=== PATIENT | female | born 1945 | race Caucasian/White ===

== ENCOUNTER 2017-09-26 10:06 | Observation (INO) | payer MEDICARE, BC ==
[~2017-09-26] VITALS: Ht 160 cm; Wt 82.7 kg
[2017-09-26] MEDS ORDERED: morphine 4 MG/ML inj SYRINge IV ONE ×2 (10:40→12:15)
[2017-09-26 11:13] LABS: BASOPHILS % (AUTO) 0.1 % (0-1); EOSINOPHILS # (AUTO) 0.2 X10'3 (0-0.9); EOSINOPHILS % (AUTO) 2.2 % (0-6); HEMATOCRIT 40.5 % (35.0-45.0); HEMOGLOBIN 13.4 g/dl (12.0-16.0); LYMPHOCYTES # (AUTO) 1.3 X10'3 (1.1-4.8); LYMPHOCYTES % (AUTO) 13.9 % (21-51); MEAN CORPUSCULAR HEMOGLOBIN 25.1 PG (27.0-31.0); MEAN CORPUSCULAR VOLUME 75.9 FL (78-98); MEAN PLATELET VOLUME 7.6 FL (7.4-10.4); MONOCYTES # (AUTO) 0.6 X10'3 (0-0.9); MONOCYTES % (AUTO) 6.5 % (2-12); NEUTROPHILS # (AUTO) 7.3 X10'3 (1.8-7.7); NEUTROPHILS % (AUTO) 77.3 % (42-75); PLATELET COUNT 274 X10'3 (140-440); RED BLOOD COUNT 5.33 X10'6 (4.20-5.60); RED CELL DISTRIBUTION WIDTH 15.8 % (11.5-14.5); WHITE BLOOD COUNT 9.4 X10'3 (4.5-11.0)
[2017-09-26] MEDS ORDERED: LORazepam 2 mg/ml vial IV ONE (11:15)
[2017-09-26 11:36] LABS: ALANINE AMINOTRANSFERASE 21 U/L (12-78); ALBUMIN 2.8 G/DL (3.4-5.0); ALBUMIN/GLOBULIN RATIO 0.9 (1.1-1.5); ALKALINE PHOSPHATASE 125 IU/L (46-116); ANION GAP 7 (8-16); ASPARTATE AMINO TRANSFERASE 17 U/L (10-37); BILIRUBIN,TOTAL 0.3 MG/DL (0.1-1.0); BLOOD UREA NITROGEN 14 MG/DL (7-18); CHLORIDE 104 MMOL/L (99-107); GLUCOSE 141 MG/DL (70-104); POTASSIUM 4.2 MMOL/L (3.5-5.1); SODIUM 141 MMOL/L (135-145); TOTAL CARBON DIOXIDE 29.8 MMOL/L (24-32); eGFR 82 ML/MIN
[2017-09-26] MEDS ORDERED: iohexol 300mg/ml 100ml inj. ONE (11:38)
[2017-09-26] MEDS ORDERED: baclofen 10mg tablet PO STA (12:44)
[2017-09-26] MEDS ORDERED: tranexamic acid 100mg/ml inj. IV ONE (13:05)
[2017-09-26] MEDS ORDERED: tranexamic acid inj. 830 MG in normal saline 100ml IV soln 91.7 ML IV ONE (13:20)
[2017-09-26] MEDS ORDERED: mag hydrox/Alum hydrox/simeth 30ml oral suspension PO PRN (13:45)
[2017-09-26] MEDS ORDERED: HYDROcodone/acetaminophen 5mg/325mg tablet PO PRN (13:45)
[2017-09-26] MEDS ORDERED: magnesium hydroxide 30ml (MOM) UD suspension PO PRN (13:45)
[2017-09-26] MEDS ORDERED: acetaminophen 325mg tablet PO PRN (13:45)
[2017-09-26] MEDS ORDERED: ondansetron/PF 4mg/2ml inj IV PRN (13:45)
[2017-09-26] MEDS ORDERED: SIMV20TA5 PO (15:18)
[2017-09-26] MEDS ORDERED: LEVO175T2 PO (15:18)
[2017-09-26] MEDS ORDERED: OXYB5TAB29 PO (15:18)
[2017-09-26 16:40] VITALS: BP 151/69
[2017-09-26] MEDS: morphine 4 MG/ML inj SYRINge IV PRN ×2 (16:44→20:52)
[2017-09-26 18:00] VITALS: BP 138/61
[2017-09-26] MEDS: baclofen 10mg tablet PO SCH (19:42)
[2017-09-27] VITALS: BP 139/60
[2017-09-27] MEDS: baclofen 10mg tablet PO SCH ×3 (02:55→13:36)
[2017-09-27 05:20] LABS: BASOPHILS % (AUTO) 0.3 % (0-1); EOSINOPHILS # (AUTO) 0.1 X10'3 (0-0.9); EOSINOPHILS % (AUTO) 1.5 % (0-6); HEMOGLOBIN 10.6 g/dl (12.0-16.0); LYMPHOCYTES # (AUTO) 1.4 X10'3 (1.1-4.8); LYMPHOCYTES % (AUTO) 15.3 % (21-51); MEAN CORPUSCULAR HEMOGLOBIN 25.2 PG (27.0-31.0); MEAN CORPUSCULAR HGB CONC 33.2 % (33.0-36.5); MEAN PLATELET VOLUME 7.9 FL (7.4-10.4); MONOCYTES # (AUTO) 0.8 X10'3 (0-0.9); MONOCYTES % (AUTO) 8.5 % (2-12); NEUTROPHILS # (AUTO) 6.6 X10'3 (1.8-7.7); NEUTROPHILS % (AUTO) 74.4 % (42-75); PLATELET COUNT 244 X10'3 (140-440); RED BLOOD COUNT 4.21 X10'6 (4.20-5.60); RED CELL DISTRIBUTION WIDTH 15.8 % (11.5-14.5); WHITE BLOOD COUNT 8.9 X10'3 (4.5-11.0)
[2017-09-27 07:25] VITALS: BP 160/48
[2017-09-27 07:40] LABS: CREATINE KINASE 73 U/L (26-192)
[2017-09-27 08:00] VITALS: BP 160/48
[2017-09-27 11:00] VITALS: BP 186/75
== END 2017-09-27 15:38 | disposition home health service (06) ==
LOC: ER 10:07 → ED HOLD 13:44 → SUR 3N 15:14
PROVIDERS: ADMIT Internal Medicine; ATTEND Internal Medicine
DX: S80.12XA Contusion of left lower leg, initial encounter (principal); D62 Acute posthemorrhagic anemia; E11.9 Type 2 diabetes mellitus without complications; E78.5 Hyperlipidemia, unspecified; E03.9 Hypothyroidism, unspecified; I69.354 Hemiplegia and hemiparesis following cerebral infarction affecting left non-dominant side; W23.1XXA Caught, crushed, jammed, or pinched between stationary objects, initial encounter; Y93.89 Activity, other specified; Y92.098 Other place in other non-institutional residence as the place of occurrence of the external cause
CPT/HCPCS: 36415; 73701; 80053; 82550; 82948; 85025; 85610; 87070; 96365; 96375; 96376; 97116; 97161; 97530; 99285; A4315; G0378; J2060; J2270; J7030; Q9967

== ENCOUNTER 2017-09-30 14:43 | Outpatient (CLI) | payer MEDICARE, BC ==
[~2017-09-30 14:43] MED LIST: LEVO175T2 PO; OXYB5TAB29 PO; SIMV20TA5 PO
== END 2017-09-30 23:59 | disposition home or self-care (01) ==
LOC: VAS 14:43
PROVIDERS: ATTEND Nurse Practitioner Family
DX: M79.605 Pain in left leg (principal); I10 Essential (primary) hypertension; E10.9 Type 1 diabetes mellitus without complications; J45.909 Unspecified asthma, uncomplicated
CPT/HCPCS: 93971

== ENCOUNTER 2018-03-29 10:54 | Emergency (ER) | payer MEDICARE, BC ==
[~2018-03-29] VITALS: Ht 162.6 cm; Wt 81.8 kg
[2018-03-29] MEDS ORDERED: DOXYCYCLINE 100MG CAPSULE PO STA (12:18)
[2018-03-29] MEDS ORDERED: DOXY100C43 PO (12:21)
[2018-03-29 12:47] VITALS: BP 123/74
[2018-03-30] MEDS ORDERED: CEPH500C5 PO (19:48)
== END 2018-03-29 12:49 | disposition home or self-care (01) ==
LOC: ER 10:54
DX: S00.83XA Contusion of other part of head, initial encounter (principal); S60.222A Contusion of left hand, initial encounter; L03.114 Cellulitis of left upper limb; E11.9 Type 2 diabetes mellitus without complications; Z86.73 Personal history of transient ischemic attack (TIA), and cerebral infarction without residual deficits; Z98.890 Other specified postprocedural states; Z88.5 Allergy status to narcotic agent; Z79.899 Other long term (current) drug therapy; Z79.01 Long term (current) use of anticoagulants; W05.0XXA Fall from non-moving wheelchair, initial encounter; Y93.89 Activity, other specified; Y92.098 Other place in other non-institutional residence as the place of occurrence of the external cause; Y99.9 Unspecified external cause status
CPT/HCPCS: 70450; 70486; 73130; 93005; 99284

== ENCOUNTER 2018-03-30 17:53 | Emergency (ER) | payer MEDICARE, BC ==
[~2018-03-30] VITALS: Ht 162.6 cm; Wt 81.9 kg
[~2018-03-30 17:53] MED LIST changes: +DOXY100C43 PO
[2018-03-30] MEDS ORDERED: cephalexin 500mg capsule PO ONE (19:45)
[2018-03-30] MEDS ORDERED: CEPH500C5 PO (19:48)
[2018-03-30 20:07] VITALS: BP 112/57
== END 2018-03-30 20:09 | disposition home or self-care (01) ==
LOC: ER 17:53
DX: L03.114 Cellulitis of left upper limb (principal); E11.9 Type 2 diabetes mellitus without complications; Z86.73 Personal history of transient ischemic attack (TIA), and cerebral infarction without residual deficits; Z98.890 Other specified postprocedural states; Z88.5 Allergy status to narcotic agent; Z79.899 Other long term (current) drug therapy
CPT/HCPCS: 99284

== ENCOUNTER 2019-01-16 11:51 | Outpatient (CLI) | payer MEDICARE, BC ==
[~2019-01-16 11:51] MED LIST changes: +CEPH500C5 PO; -DOXY100C43 PO
[2019-01-16 12:43] LABS: ALANINE AMINOTRANSFERASE 22 U/L (12-78); ALBUMIN 2.8 G/DL (3.4-5.0); ALBUMIN/GLOBULIN RATIO 0.9 (1.1-1.5); ALKALINE PHOSPHATASE 114 IU/L (46-116); ANION GAP 5 (8-16); ASPARTATE AMINO TRANSFERASE 16 U/L (10-37); BILIRUBIN,TOTAL 0.3 MG/DL (0.1-1.0); BLOOD UREA NITROGEN 13 MG/DL (7-18); BUN/CREATININE RATIO 17.6 (6.6-38.0); CALCIUM 8.8 MG/DL (8.5-10.1); CHLORIDE 107 MMOL/L (99-107); CREATININE 0.74 MG/DL (0.40-0.90); GLUCOSE 121 MG/DL (70-104); POTASSIUM 4.2 MMOL/L (3.5-5.1); SODIUM 145 MMOL/L (135-145); TOTAL PROTEIN 5.9 G/DL (6.4-8.2); eGFR 77 ML/MIN
== END 2019-01-16 23:59 | disposition home or self-care (01) ==
LOC: LAB 11:51
PROVIDERS: ATTEND Family Medicine
DX: I10 Essential (primary) hypertension (principal); E11.8 Type 2 diabetes mellitus with unspecified complications
CPT/HCPCS: 36415; 80053

== ENCOUNTER 2019-01-21 10:51 | Outpatient (CLI) | payer MEDICARE, BC ==
[2019-01-21] MEDS ORDERED: iohexol 300mg/ml 100ml inj. ONE (11:05)
== END 2019-01-21 23:59 | disposition home or self-care (01) ==
LOC: 64 CT 10:51
PROVIDERS: ATTEND Family Medicine
DX: K44.9 Diaphragmatic hernia without obstruction or gangrene (principal); K42.9 Umbilical hernia without obstruction or gangrene; M41.86 Other forms of scoliosis, lumbar region
CPT/HCPCS: 74177; Q9967

== ENCOUNTER 2019-02-24 09:34 | Outpatient (CLI) | payer MEDICARE, BC ==
[~2019-02-24 09:34] MED LIST changes: +SIMV-42 PO; -SIMV20TA5 PO
== END 2019-02-24 23:59 | disposition home or self-care (01) ==
LOC: RAD 09:34
PROVIDERS: ATTEND Family Medicine
DX: I69.991 Dysphagia following unspecified cerebrovascular disease (principal); K44.9 Diaphragmatic hernia without obstruction or gangrene; I10 Essential (primary) hypertension; E10.8 Type 1 diabetes mellitus with unspecified complications
CPT/HCPCS: 74241

== ENCOUNTER 2019-04-02 09:14 | Day surgery (SDC) | payer MEDICARE, BC ==
[~2019-04-02] VITALS: Ht 160 cm; Wt 84.1 kg
[~2019-04-02 09:14] MED LIST changes: -CEPH500C5 PO
[2019-04-02 09:25] VITALS: BP 179/93
[2019-04-02] MEDS ORDERED: LIDOcaine Viscous 15ml cup ONE (09:29)
[2019-04-02] MEDS ORDERED: fentaNYL/PF 50MCG/1 ML 2ML syringe ONE (09:29)
[2019-04-02] MEDS ORDERED: MIDAZolam 5mg/5ml vial ONE (09:29)
[2019-04-02] MEDS ORDERED: BACL20TA PO (09:48)
[2019-04-02] MEDS ORDERED: TIZA4TAB11 PO (09:49)
[2019-04-02] MEDS ORDERED: CLOP75TA15 PO (09:50)
[2019-04-02] MEDS ORDERED: PANT40SU2 PO (09:54)
[2019-04-02] MEDS ORDERED: POTA10TA36 PO (09:55)
[2019-04-02] MEDS ORDERED: FURO-150 PO (09:56)
[2019-04-02] MEDS ORDERED: INSU100V41 SQ (09:56)
[2019-04-02 09:57] VITALS: BP 159/99
[2019-04-02 10:06] VITALS: BP 161/80
[2019-04-02 10:16] VITALS: BP 170/170
[2019-04-02 10:26] VITALS: BP 175/82
== END 2019-04-02 11:05 | disposition home or self-care (01) ==
LOC: GI LAB 09:14
PROVIDERS: ATTEND Internal Medicine Gastroenterology
DX: R13.10 Dysphagia, unspecified (principal); K44.9 Diaphragmatic hernia without obstruction or gangrene; K29.70 Gastritis, unspecified, without bleeding; E11.9 Type 2 diabetes mellitus without complications; M19.90 Unspecified osteoarthritis, unspecified site; Z86.73 Personal history of transient ischemic attack (TIA), and cerebral infarction without residual deficits; Z79.899 Other long term (current) drug therapy
CPT/HCPCS: 43239; G0500; J2250; J3010; J7040; 99152; A4620

== ENCOUNTER 2019-05-22 12:34 | Outpatient (CLI) | payer MEDICARE, BC ==
[~2019-05-22 12:34] MED LIST changes: +BACL20TA PO; +CLOP75TA15 PO; +FURO-150 PO; +INSU100V41 SQ; -OXYB5TAB29 PO; +PANT40SU2 PO; +POTA10TA36 PO; +TIZA4TAB11 PO
== END 2019-05-22 23:59 | disposition home or self-care (01) ==
LOC: RAD 12:34
PROVIDERS: ATTEND Family Medicine
DX: K44.9 Diaphragmatic hernia without obstruction or gangrene (principal)
CPT/HCPCS: 71046

== ENCOUNTER 2020-09-15 11:27 | Outpatient (CLI) | payer MEDICARE, BC ==
[~2020-09-15 11:27] MED LIST changes: +ALBU18HF2 IH; -CLOP75TA15 PO; +CLOP75TA34 PO; +FURO20TA4 PO; +INSU100I29 SQ; -INSU100V41 SQ; -LEVO175T2 PO; +LEVO175T7 PO; +NOVLG SQ; -PANT40SU2 PO; -POTA10TA36 PO; -SIMV-42 PO; +SIMV-45 PO; +TIZA-189 PO; -TIZA4TAB11 PO; +TROS20TA4 PO; +VALS80TA32 PO
[2020-09-15 13:13] LABS: BASOPHILS # (AUTO) 0.1 X10'3 (0-0.2); BASOPHILS % (AUTO) 0.8 % (0-1); EOSINOPHILS # (AUTO) 0.1 X10'3 (0-0.9); EOSINOPHILS % (AUTO) 0.6 % (0-6); LYMPHOCYTES # (AUTO) 1.4 X10'3 (1.1-4.8); LYMPHOCYTES % (AUTO) 14.5 % (21-51); MEAN CORPUSCULAR HEMOGLOBIN 24.9 PG (27.0-31.0); MEAN CORPUSCULAR HGB CONC 32.6 g/dL (33.0-36.5); MEAN CORPUSCULAR VOLUME 76.4 FL (78-98); MEAN PLATELET VOLUME 7.9 FL (7.4-10.4); MONOCYTES # (AUTO) 0.7 X10'3 (0-0.9); NEUTROPHILS # (AUTO) 7.6 X10'3 (1.8-7.7); NEUTROPHILS % (AUTO) 77.1 % (42-75); PRE OP HEMOGLOBIN 15.6 g/dL (12.0-16.0); PRE OP PLATELET COUNT 292 X10'3 (140-440); RED BLOOD COUNT 6.28 X10'6 (4.20-5.60); RED CELL DISTRIBUTION WIDTH 16.4 % (11.5-14.5)
[2020-09-15 13:25] LABS: PRE OP PROTIME 10.7 SECONDS (9.0-12.0)
[2020-09-15 13:37] LABS: ALBUMIN 2.9 G/DL (3.4-5.0); ALBUMIN/GLOBULIN RATIO 0.8 (1.1-1.5); ALKALINE PHOSPHATASE 153 IU/L (46-116); BLOOD UREA NITROGEN 20 MG/DL (7-18); BUN/CREATININE RATIO 31.7 (6.6-38.0); CALCIUM 10.2 MG/DL (8.5-10.1); CHLORIDE 98 MMOL/L (99-107); CREATININE 0.63 MG/DL (0.40-0.90); PRE OP ALT 14 U/L (30-65); PRE OP ANION GAP 9 (8-16); PRE OP AST 8 U/L (10-37); PRE OP BILIRUB, TOTAL 0.3 MG/DL (0.0-1.0); PRE OP SODIUM 135 MMOL/L (135-145); TOTAL CARBON DIOXIDE 28.3 MMOL/L (24-32); TOTAL PROTEIN 6.4 G/DL (6.4-8.2); eGFR > 90 ML/MIN
[2020-09-15 13:48] LABS: PRE OP GLUCOSE 318 MG/DL (70-104)
[2020-09-15] MEDS ORDERED: DIO80T PO (14:28)
== END 2020-09-15 15:39 | disposition home or self-care (01) ==
LOC: PRE-OP 11:27 → EDSTATUS 09-21 12:30
PROVIDERS: ATTEND Orthopaedic Surgery
DX: Z01.818 Encounter for other preprocedural examination (principal); S42.201A Unspecified fracture of upper end of right humerus, initial encounter for closed fracture; S43.014A Anterior dislocation of right humerus, initial encounter; M25.511 Pain in right shoulder; M75.121 Complete rotator cuff tear or rupture of right shoulder, not specified as traumatic; X58.XXXA Exposure to other specified factors, initial encounter; Y93.89 Activity, other specified; Y92.89 Other specified places as the place of occurrence of the external cause; Y99.8 Other external cause status
CPT/HCPCS: 36415; 80053; 83036; 84443; 85025; 85610; 85730; 87081; 93005

== ENCOUNTER 2020-09-22 13:33 | Outpatient (CLI) | payer MEDICARE, BC ==
[~2020-09-22 13:33] MED LIST changes: +DIO80T PO; -FURO-150 PO; -FURO20TA4 PO; -INSU100I29 SQ; -TIZA-189 PO; -TROS20TA4 PO; -VALS80TA32 PO
== END 2020-09-22 23:59 | disposition home or self-care (01) ==
LOC: CARD DIAG 13:33
PROVIDERS: ATTEND Internal Medicine Cardiovascular Disease
DX: I08.0 Rheumatic disorders of both mitral and aortic valves (principal); E11.9 Type 2 diabetes mellitus without complications
CPT/HCPCS: 93306

== ENCOUNTER 2021-11-16 12:06 | Outpatient (CLI) | payer MEDICARE, BC ==
[~2021-11-16 12:06] MED LIST changes: +ACET-890 PO; +ACET325T58 PO; +ALB0.5UD IH; -ALBU18HF2 IH; +ATOR20TA PO; +BACL-11 PO; -BACL20TA PO; +CHOL20004 PO; +CITA20TA28 PO; +CLOP75TA15 PO; -CLOP75TA34 PO; +CRAN450T4 PO; +DILT-88 PO; -DIO80T PO; +DOCU100C40 PO; +FLUT16SP2 BOTHNARES; +GLYC15DR4 RIGHTEYE; +HYDR25TA5 PO; +INSU100C10 SQ; +ISOS60TA71 PO; +LACT1CAP7 PO; +LANTUS SQ; -LEVO175T7 PO; +LEVO25TA2 PO; +LORA10TA7 PO; +MIRA50TA PO; -NOVLG SQ; +ONDA4SOL28 PO; +OSC500T PO; +PANT40TA54 PO; +POLY17PO10 PO; +PROP1INH; +SENN8.6T19 PO; +SIME125C PO; -SIMV-45 PO; +VALS80TA32 PO; +ZINC50TA67 PO
== END 2021-11-16 23:59 | disposition home or self-care (01) ==
LOC: CARD DIAG 12:06
PROVIDERS: ATTEND Internal Medicine Cardiovascular Disease
DX: I31.3 Pericardial effusion (noninflammatory) (principal); I34.0 Nonrheumatic mitral (valve) insufficiency
CPT/HCPCS: 93306

== ENCOUNTER 2021-12-08 18:55 | Emergency (ER) | payer MEDICARE, BC ==
[~2021-12-08] VITALS: Ht 162.6 cm; Wt 61.8 kg
[2021-12-08] MEDS ORDERED: LIDOcaine 2% 10ml TOPICAL JELLY (Urojet) MM ONE ×2 (21:05→21:15)
--- NOTE | 2021-12-08 21:47 | NUR ---
Difficulty catheterizing patient r/t small, hidden urethra. Will continue to attempt to get urine sample
[2021-12-08] MEDS ORDERED: normal saline 1000ml 1,000 ML IV ONE (22:25)
[2021-12-08 23:08] LABS: BASOPHILS % (AUTO) 0.4 % (0-1); EOSINOPHILS # (AUTO) 0.1 X10'3 (0-0.9); EOSINOPHILS % (AUTO) 1.5 % (0-6); HEMATOCRIT 33.8 % (35.0-45.0); HEMOGLOBIN 11.3 g/dl (12.0-16.0); MEAN CORPUSCULAR HEMOGLOBIN 25.2 PG (27.0-31.0); MEAN CORPUSCULAR HGB CONC 33.5 g/dL (33.0-36.5); MEAN CORPUSCULAR VOLUME 75.2 FL (78-98); MEAN PLATELET VOLUME 6.7 FL (7.4-10.4); MONOCYTES # (AUTO) 0.5 X10'3 (0-0.9); MONOCYTES % (AUTO) 9.6 % (2-12); NEUTROPHILS # (AUTO) 3.8 X10'3 (1.8-7.7); NEUTROPHILS % (AUTO) 69.5 % (42-75); PLATELET COUNT 316 X10'3 (140-440); RED CELL DISTRIBUTION WIDTH 16.3 % (11.5-14.5); WHITE BLOOD COUNT 5.4 X10'3 (4.5-11.0)
[2021-12-08 23:38] LABS: ALANINE AMINOTRANSFERASE 15 U/L (12-78); ALBUMIN 2.3 G/DL (3.4-5.0); ALBUMIN/GLOBULIN RATIO 0.6 (1.1-1.5); ALKALINE PHOSPHATASE 156 IU/L (46-116); ANION GAP 9 (8-16); ASPARTATE AMINO TRANSFERASE 10 U/L (10-37); BILIRUBIN,TOTAL 0.3 MG/DL (0.1-1.0); BLOOD UREA NITROGEN 30 MG/DL (7-18); BUN/CREATININE RATIO 40.5 (6.6-38.0); CALCIUM 8.9 MG/DL (8.5-10.1); CHLORIDE 99 MMOL/L (99-107); CREATININE 0.74 MG/DL (0.40-0.90); GLUCOSE 376 MG/DL (70-104); LIPASE < 50 U/L (73-393); SODIUM 137 MMOL/L (135-145); TOTAL CARBON DIOXIDE 28.8 MMOL/L (24-32); TOTAL PROTEIN 5.9 G/DL (6.4-8.2); eGFR 76 ML/MIN
[2021-12-09 00:36] LABS: COLOR,URINE YELLOW (Yellow); GLUCOSE, URINE >=1000 mg/dl (Neg); KETONES,URINE TRACE mg/dl (Neg); LEUKOCYTE ESTERASE ,URINE MODERATE (Neg); NITRITES, URINE NEGATIVE (Neg); OCCULT BLOOD,URINE LARGE (Neg); PROTEIN,URINE 100 mg/dl (Neg); UROBILINOGEN,URINE 0.2 E.U/dL (0.2-1.0)
[2021-12-09 00:40] LABS: CLARITY,URINE CLOUDY (Clear); UA COLLECTION TYPE OTHER
[2021-12-09 00:41] LABS: BACTERIA,URINE FEW /HPF (Neg); RBC,URINE 50-100 /HPF (0-2); SQUAMOUS EPITHELIAL CELL,UR FEW /LPF (FEW); WBC CLUMPS,URINE FEW /HPF (NEGATIVE); WBC,URINE 50-100 /HPF (0-4)
[2021-12-09] MEDS ORDERED: CEPH250T PO (00:54)
[2021-12-09] MEDS ORDERED: CefTRIAXone 2gm/D5W 50ml BAG 50 ML IV ONE (00:55)
[2021-12-09 03:48] VITALS: BP 130/78
== END 2021-12-09 03:50 ==
LOC: ER 18:56
DX: N39.0 Urinary tract infection, site not specified (principal); Z88.5 Allergy status to narcotic agent; Z98.890 Other specified postprocedural states
CPT/HCPCS: 36415; 74176; 80053; 81001; 83605; 83690; 84145; 85025; 87040; 87077; 87088; 87186; 96361; 96365; 96366; 99284; C1758; J0696; J7030; A4338; A4353

== ENCOUNTER 2022-01-04 10:26 | Observation (INO) | payer MEDICARE, BC ==
[2022-01-04] VITALS (22 sets, daily range): BP systolic 94–135; BP diastolic 41–78
[~2022-01-04] VITALS: Ht 160 cm; Wt 63.5 kg
[~2022-01-04 10:26] MED LIST changes: -ACET325T58 PO; +BACI1PAC7 TP; +CEPH250T PO; +CLOP-32 PO; -CLOP75TA15 PO; +DULCOLAX SUPPOSITORY RC; +FLO0.4C PO; +HYDR-3972 PO; +HYDR25TA4 PO; -HYDR25TA5 PO; +INSU100I29 SQ; +INSU100V46 SQ; -LACT1CAP7 PO; -LANTUS SQ; +LIDOCAINE PATCH 4% TOP; +MAGN200T8 PO; +POLY119P2 PO; +PREVCR VG; -PROP1INH; +TEMA15CA5 PO; +TROL141. TOP; +ceFAZolin inj. 2,000 MG in dextrose 5%-water 100 ML IV ONE; +ceFOXitin 2GM-NS 100mL ADDvant 100 ML IV ONE; +famotidine 20mg tablet PO ONE
[2022-01-04 11:59] LABS: BASOPHILS % (AUTO) 0.6 % (0-1); EOSINOPHILS # (AUTO) 0.1 X10'3 (0-0.9); EOSINOPHILS % (AUTO) 1.8 % (0-6); LYMPHOCYTES # (AUTO) 1.6 X10'3 (1.1-4.8); MEAN CORPUSCULAR HEMOGLOBIN 25.1 PG (27.0-31.0); MEAN CORPUSCULAR HGB CONC 33.2 g/dL (33.0-36.5); MEAN CORPUSCULAR VOLUME 75.8 FL (78-98); MEAN PLATELET VOLUME 6.8 FL (7.4-10.4); MONOCYTES # (AUTO) 0.5 X10'3 (0-0.9); MONOCYTES % (AUTO) 8.2 % (2-12); NEUTROPHILS # (AUTO) 4.1 X10'3 (1.8-7.7); NEUTROPHILS % (AUTO) 64.4 % (42-75); PRE OP HEMATOCRIT 34.9 % (35.0-45.0); PRE OP HEMOGLOBIN 11.6 g/dL (12.0-16.0); PRE OP PLATELET COUNT 252 X10'3 (140-440); RED CELL DISTRIBUTION WIDTH 14.6 % (11.5-14.5)
[2022-01-04 12:13] LABS: ALBUMIN 2.4 G/DL (3.4-5.0); ALBUMIN/GLOBULIN RATIO 0.8 (1.1-1.5); ALKALINE PHOSPHATASE 140 IU/L (46-116); BLOOD UREA NITROGEN 25 MG/DL (7-18); BUN/CREATININE RATIO 36.2 (6.6-38.0); CHLORIDE 100 MMOL/L (99-107); CREATININE 0.69 MG/DL (0.40-0.90); PRE OP ALT 12 U/L (30-65); PRE OP ANION GAP 4 (8-16); PRE OP AST 10 U/L (10-37); PRE OP BILIRUB, TOTAL 0.3 MG/DL (0.0-1.0); PRE OP POTASSIUM 3.7 MMOL/L (3.4-5.1); PRE OP SODIUM 135 MMOL/L (135-145); TOTAL PROTEIN 5.6 G/DL (6.4-8.2); eGFR 83 ML/MIN
[2022-01-04 12:17] LABS: PRE OP GLUCOSE 299 MG/DL (70-104)
[2022-01-04] MEDS: ringers solution, lacted 1,000 ML IV SCH ×3 (12:32→21:27)
[2022-01-04] MEDS ORDERED: insulin regular, human 10 units/0.1 ml syringe SQ ONE ×2 (12:35→13:50)
[2022-01-04] MEDS ORDERED: insulin regular, human U-100 3ml vial - multi-dose IV ONE (13:50)
[2022-01-04] MEDS ORDERED: clindamycin phosphate 40gm vag cream ONE (14:15)
[2022-01-04] MEDS ORDERED: LIDOCAINE 1%/EPI 1:100,000 inj. 10 ML multi-dose vial ONE (14:15)
[2022-01-04] MEDS ORDERED: iohexol 350MG/ML 100ml bottle IV ONE (14:16)
[2022-01-04] MEDS ORDERED: meperidine/PF 25mg/ml syringe IV PRN (14:45)
[2022-01-04] MEDS ORDERED: hydrALAZINE 20mg/ml inj. IV PRN (14:45)
[2022-01-04] MEDS ORDERED: acetaminophen 1,000mg/100ml IV 100 ML IV PRN (14:45)
[2022-01-04] MEDS ORDERED: proCHLORperazine 10 MG/2 ml inj IV PRN (14:45)
[2022-01-04] MEDS ORDERED: labetalol 20mg/4ml (5mg/ml) syringe IV PRN (14:45)
[2022-01-04] MEDS ORDERED: morphine 4 MG/ML inj SYRINge IV PRN (14:45)
[2022-01-04] MEDS ORDERED: ringers solution, lacted 1,000 ML IV SCH (14:45)
[2022-01-04] MEDS ORDERED: ondansetron/PF 4mg/2ml inj IV PRN ×2 (14:45→18:15)
[2022-01-04] MEDS ORDERED: morphine 2 MG/ML inj. syringe IV PRN ×2 (14:45→18:15)
[2022-01-04] MEDS ORDERED: HYDROmorphone/PF 0.2 MG/ML SYRINGE IV PRN ×2 (14:45)
--- NOTE | 2022-01-04 14:45 | NUR ---
BLOOD GLUCOSE 261 AFTER SEVERAL DOSES OF INSULIN. ANESTHESIA AWARE, OK TO PROCEED.
[2022-01-04] MEDS ORDERED: fentaNYL/PF 50MCG/1 ML 2ML syringe ONE (14:47)
[2022-01-04] MEDS ORDERED: bacitracin 15gm ointment TP ONE (15:30)
[2022-01-04] MEDS ORDERED: propofol inj 20 ML IV ONE (15:43)
[2022-01-04] MEDS ORDERED: LIDOcaine 2% (20mg/ml) 5ml vial ONE (15:43)
[2022-01-04] MEDS ORDERED: midazolam 1 mg/ML 2ml injection ONE (15:43)
[2022-01-04] MEDS ORDERED: 0.9 % SODIUM CHLORIDE 10 ML VIAL ONE (15:43)
[2022-01-04] MEDS ORDERED: ondansetron/PF 4mg/2ml inj ONE (15:44)
[2022-01-04] MEDS ORDERED: dexamethasone sod phosphate 4mg/ml inj. ONE (15:44)
[2022-01-04] MEDS ORDERED: polyvinyl alcohol ophthalmic drops 15ml bottle RIGHTEYE PRN (18:00)
[2022-01-04] MEDS ORDERED: ALOE VERA TOP PRN (18:00)
[2022-01-04] MEDS ORDERED: baclofen 10mg tablet PO PRN (18:00)
[2022-01-04] MEDS ORDERED: ondansetron 4mg/5ml UD cup PO PRN (18:00)
[2022-01-04] MEDS ORDERED: temazepam 15mg capsule PO PRN (18:00)
[2022-01-04] MEDS ORDERED: albuterol 2.5 MG/3 ML nebule NEB PRN (18:00)
[2022-01-04] MEDS ORDERED: TROLAMINE SALICYLATE TOP PRN (18:00)
--- NOTE | 2022-01-04 18:00 | NUR ---
Received from OR via BED, accompanied by Anesthesiologist DR RICH and report given by Anesthesiologist AND CHIEF ENGINEER [employer]ING [employer]OVERY. PT VERY DROWSY, NO S/S OF DISTRESS/DISCOMFORT. LABIA W/STITCHES UNABLE TO VISUALIZE, NO BLEEDING OR SWELLING NOTED. PT APPEARS COMFORTABLE. Addendum: 01/04/22 at 1815 by Saima Bradshaw RN Amended: Links added.
[2022-01-04] MEDS ORDERED: MESSAGE TO PHARMACY PO ONE (18:10)
[2022-01-04] MEDS ORDERED: dextrose 50%-water 50ml dispensing syringe IV PRN ×2 (18:10)
[2022-01-04] MEDS ORDERED: glucagon, human recombinant 1mg kit SUBCUT PRN (18:10)
[2022-01-04] MEDS ORDERED: DEXTROSE 15 GM of carb/4 tabs (each vial/BOTTLE has 4 tablets) PO PRN ×2 (18:10)
[2022-01-04] MEDS ORDERED: normal saline 1000ml 1,000 ML IV SCH (18:20)
[2022-01-04 19:09] LABS: HEMOGLOBIN A1C 7.7 % (4.5-6.2)
--- NOTE | 2022-01-04 20:00 | NUR ---
PT INCONTINENT OF LARGE VOID, SARAH CARE PROVIDED, CHANGED LINEN. PT STATES IS COMFORTABLE. Report called to receiving nurse. Transferred via BED, 1 BAG OF Belongings, PILLOW AND RED SUITCASE SENT TO ROOM 4015B W/PT. RECEIVING RN AT BEDSIDE TO RECEIVE PT. BLL, CALL LIGHT GIVEN, SIDE RAILS UP X 2. Special Issues communicated to receiving nurse. YES. Addendum: 01/04/22 at 2016 by Saima Bradshaw RN Amended: Links added.
[2022-01-04] MEDS ORDERED: insulin glargine (Lantus) pen - multi-dose SQ SCH (21:00)
[2022-01-04] MEDS ORDERED: atorvastatin 20mg tablet PO SCH (21:00)
[2022-01-04] MEDS ORDERED: sennosides 8.6mg tablet PO SCH (21:00)
[2022-01-04] MEDS: bacitracin ointment unit dose packet TP SCH (21:00)
[2022-01-04] MEDS ORDERED: estrogens, conjug. vaginal cream 45gm tube VG SCH (21:00)
[2022-01-04] MEDS ORDERED: VALSARTAN PO SCH (21:00)
[2022-01-04] MEDS: docusate sod 100mg capsule PO SCH (21:46)
[2022-01-04] MEDS: HYDROcodone/acetaminophen 10/325mg tab PO SCH (21:46)
--- NOTE | 2022-01-04 22:41 | NUR ---
PATIENT IS FRESH POST OP.
[2022-01-05] MEDS: ceFAZolin/D5W- 1GM premix 50 ML IV SCH ×2 (00:35→08:08)
[2022-01-05 02:00] VITALS: BP 92/45
[2022-01-05] MEDS: HYDROcodone/acetaminophen 10/325mg tab PO SCH ×4 (04:50→12:39)
[2022-01-05] MEDS ORDERED: SIMETHICONE 125 MG CAPSULE PO SCH ×2 (05:13)
[2022-01-05 06:00] VITALS: BP 110/56
--- NOTE | 2022-01-05 06:10 | NUR ---
Patient in room ORTHO 4015. I have received report from DANDRE Boudreaux and had the opportunity to ask questions and assume patient care.
--- NOTE | 2022-01-05 06:20 | NUR ---
Problems reprioritized. Patient report given, questions answered & plan of care reviewed with ALBERTO AMOS.
[2022-01-05] MEDS ORDERED: CEPH250T PO (07:52)
[2022-01-05] MEDS ORDERED: mirabegron 25mg ER tablet PO SCH (08:00)
[2022-01-05] MEDS ORDERED: diltiazem CD 120mg capsule (once-daily) PO SCH (08:00)
[2022-01-05] MEDS ORDERED: HYDROchlorothiazide 25mg tablet PO SCH (08:00)
[2022-01-05] MEDS ORDERED: citalopram 20mg tablet PO SCH (08:00)
[2022-01-05] MEDS ORDERED: cholecalciferol (vitamin D3) 1,000 unit (25mcg) tablet PO SCH (08:00)
[2022-01-05] MEDS ORDERED: loratadine 10mg tablet PO SCH (08:00)
[2022-01-05] MEDS ORDERED: zinc sulfate 220mg capsule PO SCH (08:00)
[2022-01-05] MEDS ORDERED: MAGNESIUM OXIDE 500 MG PO SCH (08:00)
[2022-01-05] MEDS ORDERED: polyethylene glycol 3350 17gm powd pack PO SCH (08:00)
[2022-01-05] MEDS ORDERED: levoTHYROXINE 25mcg tablet PO SCH (08:00)
[2022-01-05] MEDS ORDERED: magnesium oxide 400mg tablet PO SCH (08:00)
[2022-01-05] MEDS ORDERED: non-formulary drug (Cranberry Extract (Cranberry) 1 TAB) PO SCH (08:00)
[2022-01-05] MEDS ORDERED: tamsulosin 0.4mg capsule PO SCH (08:00)
[2022-01-05] MEDS ORDERED: calcium carbonate 500mg tablet PO SCH (08:00)
[2022-01-05] MEDS ORDERED: fluticasone nasal spray 16GM bottle NS SCH (08:00)
[2022-01-05] MEDS ORDERED: acetaminophen 325mg tablet PO SCH (08:00)
[2022-01-05] MEDS ORDERED: pantoprazole 40mg Tablet.DR PO SCH (08:00)
[2022-01-05] MEDS: docusate sod 100mg capsule PO SCH (08:11)
[2022-01-05] MEDS: bacitracin ointment unit dose packet TP SCH ×2 (08:13→13:47)
[2022-01-05] MEDS: insulin Lispro (HumaLOG) vial - multi-dose SQ SCH ×2 (08:25→12:47)
[2022-01-05 10:00] VITALS: BP 130/82
--- NOTE | 2022-01-05 14:00 | NUR ---
Pt discharged to [facility], with all belongings, in medical transport vehicle, accompanied by medical transport personnel. Discharge instructions and medications reviewed. New prescriptions sent to [facility] on [address]. Pt states understanding and willingness to comply with all discharge instructions. IV DC'd, cannula intact.
--- NOTE | 2022-01-05 15:27 | NUR ---
WOC assessment. Arrived in room for assessment for low Dany. Pt is awake and agrees to assessment. Pt is to be discharged in approx one hour per nursing. Skin assessment finds no breakdown or skin issues. Repositioned in bed for comfort on her left side and heels floated. Report to primary nurse and WOC will not f/u as she is being discharged. Addendum: 01/05/22 at 1531 by Nicki Leiva RN Amended: Links added.
== END 2022-01-05 13:56 ==
LOC: PAS 10:26 → ORTHO 4S 17:59 → PAS 20:30 → UNDOADMOB 20:38 → ORTHO 4S 20:38
PROVIDERS: ADMIT Obstetrics & Gynecology; ATTEND Obstetrics & Gynecology
DX: N90.89 Other specified noninflammatory disorders of vulva and perineum (principal); Z20.822 Contact with and (suspected) exposure to COVID-19; N20.2 Calculus of kidney with calculus of ureter
CPT/HCPCS: 36415; 50080; 52005; 56441; 56810; 74018; 80053; 82948; 83036; 85025; 86885; 86900; 86901; 87081; 87811; 93005; 96365; 96366; C1758; C1769; C2617; G0378; J0690; J0694; J1100; J1815; J2250; J2405; J2704; J3010; J3490; J7030; J7120; Q9967; 76000; A4615; A4618; A7000; C1894

== ENCOUNTER 2023-08-08 08:53 | Day surgery (SDC) | payer OTHER, MEDICARE, BC ==
[2023-08-01 15:49] LABS: BASOPHILS % (AUTO) 0.6 % (0-1); EOSINOPHILS # (AUTO) 0.1 X10'3 (0-0.9); EOSINOPHILS % (AUTO) 1.5 % (0-6); LYMPHOCYTES # (AUTO) 1.6 X10'3 (1.1-4.8); LYMPHOCYTES % (AUTO) 20.7 % (21-51); MEAN CORPUSCULAR HEMOGLOBIN 25.2 PG (27.0-31.0); MEAN CORPUSCULAR HGB CONC 32.7 g/dL (33.0-36.5); MEAN CORPUSCULAR VOLUME 77.2 FL (78-98); MEAN PLATELET VOLUME 6.9 FL (7.4-10.4); MONOCYTES # (AUTO) 0.7 X10'3 (0-0.9); MONOCYTES % (AUTO) 9.4 % (2-12); NEUTROPHILS # (AUTO) 5.3 X10'3 (1.8-7.7); NEUTROPHILS % (AUTO) 67.8 % (42-75); PRE OP HEMATOCRIT 40.9 % (35.0-45.0); PRE OP HEMOGLOBIN 13.3 g/dL (12.0-16.0); PRE OP PLATELET COUNT 257 X10'3 (140-440); PRE OP WHITE BLOOD COUNT 7.8 10'3 (4.8-10.8); RED BLOOD COUNT 5.29 X10'6 (4.20-5.60)
[2023-08-01 16:37] LABS: ALBUMIN 2.6 G/DL (3.4-5.0); ALBUMIN/GLOBULIN RATIO 0.8 (1.1-1.5); ALKALINE PHOSPHATASE 141 IU/L (46-116); BLOOD UREA NITROGEN 14 MG/DL (7-18); BUN/CREATININE RATIO 25.9 (10.0-20.0); CHLORIDE 100 MMOL/L (99-107); CREATININE 0.54 MG/DL (0.40-0.90); PRE OP ALT 14 U/L (30-65); PRE OP ANION GAP 3 (8-16); PRE OP AST 10 U/L (10-37); PRE OP BILIRUB, TOTAL 0.3 MG/DL (0.0-1.0); PRE OP GLUCOSE 129 MG/DL (70-104); PRE OP SODIUM 136 MMOL/L (135-145); THYROID STIMULATING HORMONE 2.77 ulU/ml (0.34-4.50); TOTAL CARBON DIOXIDE 33.2 MMOL/L (24-32); eGFR > 90 ML/MIN
[2023-08-08] VITALS (18 sets, daily range): BP systolic 110–152; BP diastolic 61–85; PULSE 63–82; RESP 11–17; TEMP 99; O2SAT 82–98
[~2023-08-08] VITALS: Ht 160 cm; Wt 72.6 kg
[~2023-08-08 08:53] MED LIST changes: -ALB0.5UD IH; -BACI1PAC7 TP; +CALCIUM PO; -CEPH250T PO; -CHOL20004 PO; +CHOL500050 PO; -DULCOLAX SUPPOSITORY RC; -FLUT16SP2 BOTHNARES; -GLYC15DR4 RIGHTEYE; -HYDR-3972 PO; +IBUP-2697 PO; -INSU100C10 SQ; -INSU100V46 SQ; -LIDOCAINE PATCH 4% TOP; +NOVLG SQ; -ONDA4SOL28 PO; -OSC500T PO; -POLY119P2 PO; -POLY17PO10 PO; -PREVCR VG; -SIME125C PO; -TEMA15CA5 PO; -TROL141. TOP; -ceFAZolin inj. 2,000 MG in dextrose 5%-water 100 ML IV ONE; -ceFOXitin 2GM-NS 100mL ADDvant 100 ML IV ONE; -famotidine 20mg tablet PO ONE
[2023-08-08] MEDS: ringers solution, lacted 1,000 ML IV SCH (10:19)
[2023-08-08] MEDS: famotidine 20mg tablet PO ONE (10:19)
[2023-08-08] MEDS: cefazolin 2gm/D5W 100mL 100 ML IV ONE (10:19)
[2023-08-08] MEDS ORDERED: BUPIVAcaine/PF 2.5mg/ml (0.25%) 10ml vial ONE ×2 (10:57→12:22)
[2023-08-08] MEDS ORDERED: LIDOcaine 1% 30ml preserv. free vial ONE (10:57)
[2023-08-08] MEDS ORDERED: BUPIVACAINE liposomal/PF 13.3 MG/ML vial IM ONE (10:57)
[2023-08-08] MEDS ORDERED: sevoflurane 250ml liquid IH ONE (12:01)
[2023-08-08] MEDS ORDERED: fentaNYL/PF 50MCG/1 ML 2ML syringe ONE (12:03)
[2023-08-08] MEDS ORDERED: midazolam 1 mg/ML 2ml injection ONE (12:04)
[2023-08-08] MEDS ORDERED: rocuronium 10mg/ml inj IV ONE (12:33)
[2023-08-08] MEDS ORDERED: propofol inj 20 ML IV ONE (12:33)
[2023-08-08] MEDS ORDERED: morphine 2 MG/ML inj. syringe IV PRN (13:05)
[2023-08-08] MEDS ORDERED: morphine 4 MG/ML inj SYRINge IV PRN (13:05)
[2023-08-08] MEDS ORDERED: proCHLORperazine 10 MG/2 ml inj IV PRN (13:05)
[2023-08-08] MEDS ORDERED: meperidine/PF 25mg/ml syringe IV PRN ×2 (13:05)
[2023-08-08] MEDS ORDERED: ondansetron/PF 4mg/2ml inj IV PRN (13:05)
[2023-08-08] MEDS ORDERED: ringers solution, lacted 1,000 ML IV SCH (13:05)
[2023-08-08] MEDS ORDERED: ondansetron/PF 4mg/2ml inj ONE (13:11)
[2023-08-08] MEDS ORDERED: glycopyrrolate 0.2mg/ml inj ONE (13:13)
[2023-08-08] MEDS ORDERED: neostigmine methylsulfate 1 MG/ML 10ml vial ONE (13:13)
[2023-08-08] MEDS ORDERED: oxyCODONE/APAP 5-325mg tablet PO PRN (13:25)
[2023-08-08] MEDS: meperidine/PF 25mg/ml syringe IV PRN (14:14)
== END 2023-08-08 16:23 | disposition home or self-care (01) ==
LOC: PAS 08:53
PROVIDERS: ATTEND Surgery
DX: K43.9 Ventral hernia without obstruction or gangrene (principal); F32.A Depression, unspecified; E03.9 Hypothyroidism, unspecified; I69.354 Hemiplegia and hemiparesis following cerebral infarction affecting left non-dominant side; E10.9 Type 1 diabetes mellitus without complications; Z87.442 Personal history of urinary calculi; I50.9 Heart failure, unspecified; E78.5 Hyperlipidemia, unspecified; Z79.899 Other long term (current) drug therapy; Z88.6 Allergy status to analgesic agent; Z79.01 Long term (current) use of anticoagulants; Z98.890 Other specified postprocedural states
CPT/HCPCS: 36415; 49593; 80053; 82948; 84443; 85025; 93005; C1781; C9290; J0690; J2175; J2250; J2405; J2704; J2710; J3010; J3490; J7030; J7120; Z7506; Z7508; Z7512; A4215; A4615; A4618

== ENCOUNTER 2023-09-18 07:58 | Day surgery (SDC) | payer MEDICARE, BC ==
[~2023-09-18] VITALS: Ht 160 cm; Wt 70.0 kg
[~2023-09-18 07:58] MED LIST changes: +ONDA4TAB12 PO; +PANT20TA18 PO
[2023-09-18] MEDS ORDERED: VALS40TA11 PO (08:31)
[2023-09-18] MEDS ORDERED: ATOR20TA66 PO (08:31)
[2023-09-18] MEDS ORDERED: ACET-2778 PO (08:31)
[2023-09-18 08:32] VITALS: BP 139/83; PULSE 76; RESP 22
[2023-09-18] MEDS ORDERED: BACL20TA11 PO (08:34)
[2023-09-18] MEDS ORDERED: CHOL12509 PO (08:39)
[2023-09-18] MEDS ORDERED: diphenhydrAMINE 50 mg/ml inj ONE (08:42)
[2023-09-18] MEDS ORDERED: MIDAZolam 1 MG/ML 5ML VIAL ONE (08:42)
[2023-09-18] MEDS ORDERED: LIDOcaine 2% Viscous 15ml cup ONE (08:42)
[2023-09-18] MEDS ORDERED: fentaNYL/PF 50MCG/1 ML 2ML syringe ONE (08:42)
[2023-09-18 09:23] VITALS: BP 187/102; PULSE 90; RESP 13; O2SAT 95
[2023-09-18 09:33] VITALS: BP 182/104; PULSE 99; RESP 14; O2SAT 98
[2023-09-18 09:43] VITALS: BP 168/92; PULSE 79; RESP 15; O2SAT 99
[2023-09-18 09:53] VITALS: BP 158/84; PULSE 80; RESP 14; O2SAT 99
[2023-09-18 10:03] VITALS: BP 139/75; PULSE 19; RESP 16; O2SAT 98
== END 2023-09-18 10:23 | disposition home or self-care (01) ==
LOC: GI LAB 07:58
PROVIDERS: ATTEND Internal Medicine Gastroenterology
DX: R11.10 Vomiting, unspecified (principal); K44.9 Diaphragmatic hernia without obstruction or gangrene; K22.89 Other specified disease of esophagus; K31.89 Other diseases of stomach and duodenum; I10 Essential (primary) hypertension; E11.9 Type 2 diabetes mellitus without complications
CPT/HCPCS: 43239; G0500; J1200; J2250; J3010; J7030; Z7512; 99152; 99153; A4620

== ENCOUNTER 2023-10-24 13:17 | Emergency (ER) | payer MEDICARE, BC ==
[~2023-10-24] VITALS: Ht 160 cm; Wt 62.7 kg
[~2023-10-24 13:17] MED LIST changes: +ACET-2778 PO; +ATOR20TA66 PO; +BACL20TA11 PO; +CHOL12509 PO; -LORA10TA7 PO; -ONDA4TAB12 PO; -PANT20TA18 PO; +VALS40TA11 PO
[2023-10-24 13:48] LABS: BASOPHILS % (AUTO) 0.5 % (0-1); EOSINOPHILS # (AUTO) 0.2 X10'3 (0-0.9); EOSINOPHILS % (AUTO) 2.6 % (0-6); HEMATOCRIT 40.1 % (35.0-45.0); HEMOGLOBIN 13.1 g/dl (12.0-16.0); LYMPHOCYTES # (AUTO) 1.9 X10'3 (1.1-4.8); MEAN CORPUSCULAR HEMOGLOBIN 25.2 PG (27.0-31.0); MEAN CORPUSCULAR HGB CONC 32.7 g/dL (33.0-36.5); MEAN CORPUSCULAR VOLUME 76.9 FL (78-98); MEAN PLATELET VOLUME 6.9 FL (7.4-10.4); MONOCYTES # (AUTO) 0.6 X10'3 (0-0.9); MONOCYTES % (AUTO) 8.7 % (2-12); NEUTROPHILS # (AUTO) 4.2 X10'3 (1.8-7.7); NEUTROPHILS % (AUTO) 61.2 % (42-75); PLATELET COUNT 315 X10'3 (140-440); RED BLOOD COUNT 5.21 X10'6 (4.20-5.60); RED CELL DISTRIBUTION WIDTH 16.1 % (11.5-14.5); WHITE BLOOD COUNT 6.9 X10'3 (4.5-11.0)
[2023-10-24 14:20] LABS: ALANINE AMINOTRANSFERASE 20 U/L (12-78); ALBUMIN 2.2 G/DL (3.4-5.0); ALBUMIN/GLOBULIN RATIO 0.7 (1.1-1.5); ALKALINE PHOSPHATASE 130 IU/L (46-116); ANION GAP 3 (8-16); ASPARTATE AMINO TRANSFERASE 14 U/L (10-37); BILIRUBIN,TOTAL 0.3 MG/DL (0.1-1.0); BLOOD UREA NITROGEN 14 MG/DL (7-18); BUN/CREATININE RATIO 17.7 (10.0-20.0); CHLORIDE 103 MMOL/L (99-107); CREATININE 0.79 MG/DL (0.40-0.90); GLUCOSE 135 MG/DL (70-104); POTASSIUM 4.1 MMOL/L (3.5-5.1); SODIUM 139 MMOL/L (135-145); TOTAL CARBON DIOXIDE 33.2 MMOL/L (24-32); TOTAL PROTEIN 5.4 G/DL (6.4-8.2); eCRCL 49 ML/MIN; eGFR 70 ML/MIN
[2023-10-24] MEDS ORDERED: magnesium Cl slow-release 64mg tablet PO PRN (15:30)
[2023-10-24] MEDS ORDERED: ondansetron/PF 4mg/2ml inj IV PRN (15:30)
[2023-10-24] MEDS ORDERED: magnesium sulf-water 4G/100mL 100 ML IV PRN (15:30)
[2023-10-24] MEDS ORDERED: acetaminophen 325mg tablet PO PRN (15:30)
[2023-10-24] MEDS ORDERED: potassium Cl 40MEQ/1/2NS 520ml 520 ML IV PRN (15:30)
[2023-10-24] MEDS ORDERED: magnesium sulf-water 2g/50mL 50 ML IV PRN (15:30)
[2023-10-24] MEDS ORDERED: potassium Cl 20 mEq SR tablet PO PRN ×2 (15:30)
[2023-10-24] MEDS ORDERED: dextrose 50%-water 50ml dispensing syringe IV PRN ×2 (15:35)
[2023-10-24] MEDS ORDERED: DEXTROSE 15 GM of carb/4 tabs (each vial/BOTTLE has 4 tablets) PO PRN ×2 (15:35)
[2023-10-24] MEDS ORDERED: glucagon, human recombinant 1mg kit SUBCUT PRN (15:35)
[2023-10-24] MEDS: normal saline 1000ml 1,000 ML IV SCH (15:41)
[2023-10-24] MEDS ORDERED: acetaminophen 325mg tablet PO SCH (16:00)
[2023-10-24] MEDS ORDERED: INSULIN LISPRO 100 UNIT/ML INSULN.PEN MULTI-DOSE SQ SCH (17:00)
[2023-10-24] MEDS ORDERED: PANT-47 PO (17:48)
[2023-10-24] MEDS ORDERED: DILT120T3 PO (17:48)
[2023-10-24] MEDS ORDERED: HYDR25TA5 PO (17:48)
[2023-10-24] MEDS ORDERED: DOCU-148 PO (17:48)
[2023-10-24] MEDS ORDERED: MIRA25TA PO (17:48)
[2023-10-24] MEDS ORDERED: LEVO175T7 PO (17:48)
[2023-10-24] MEDS ORDERED: CALC600T14 PO (17:49)
[2023-10-24] MEDS ORDERED: [UNRECOGNIZED DRUG - OTHER] (17:49)
[2023-10-24] MEDS ORDERED: BACL20TA PO (17:49)
[2023-10-24] MEDS ORDERED: FLO0.4C PO (17:49)
[2023-10-24] MEDS ORDERED: CLOP75TA34 PO (17:49)
[2023-10-24] MEDS ORDERED: ZINC50TA60 PO (17:49)
[2023-10-24] MEDS ORDERED: LORA10TA65 PO (17:49)
[2023-10-24] MEDS ORDERED: ISOS60TA71 PO (17:49)
[2023-10-24] MEDS ORDERED: INSU100C4 SQ (17:49)
[2023-10-24] MEDS ORDERED: CHOL50004 PO (17:49)
[2023-10-24] MEDS ORDERED: MAGN250T11 PO (17:49)
[2023-10-24] MEDS ORDERED: INSU100V41 SQ (17:49)
[2023-10-24] MEDS ORDERED: SENN-263 PO (17:49)
[2023-10-24] MEDS ORDERED: VALS80TA32 PO (17:49)
[2023-10-24 18:30] VITALS: BP 144/82; PULSE 79; RESP 17; TEMP 97.9; O2SAT 95
[2023-10-24] MEDS ORDERED: heparin, porcine 5000 units/ml vial SQ SCH (20:00)
== END 2023-10-24 19:44 | disposition home or self-care (01) ==
LOC: ER 13:18 → UNDOADMOB 15:32 → ED HOLD 15:32 → UNDODISOB 18:30
DX: K44.9 Diaphragmatic hernia without obstruction or gangrene (principal); R62.7 Adult failure to thrive; E46 Unspecified protein-calorie malnutrition; E11.9 Type 2 diabetes mellitus without complications; Z88.5 Allergy status to narcotic agent; Z79.1 Long term (current) use of non-steroidal anti-inflammatories (NSAID); Z79.2 Long term (current) use of antibiotics; Z79.4 Long term (current) use of insulin; Z79.899 Other long term (current) drug therapy; Z98.890 Other specified postprocedural states
CPT/HCPCS: 36415; 80053; 82948; 83036; 85025; 93005; 96360; 96361; 99285; J7030; J1815

== ENCOUNTER 2024-01-16 15:45 | Emergency (ER) | payer MEDICARE, BC ==
[~2024-01-16] VITALS: Ht 160 cm; Wt 60.0 kg
[~2024-01-16 15:45] MED LIST changes: -ACET-2778 PO; -ACET-890 PO; -ATOR20TA PO; -BACL-11 PO; +BACL20TA PO; -BACL20TA11 PO; +CALC600T14 PO; -CALCIUM PO; -CHOL12509 PO; +CHOL50004 PO; -CHOL500050 PO; -CLOP-32 PO; +CLOP75TA34 PO; -CRAN450T4 PO; -DILT-88 PO; +DILT120T3 PO; +DOCU-148 PO; -DOCU100C40 PO; -HYDR25TA4 PO; +HYDR25TA5 PO; -IBUP-2697 PO; +INSU100C4 SQ; -INSU100I29 SQ; +INSU100V41 SQ; +LEVO175T7 PO; -LEVO25TA2 PO; +LORA10TA65 PO; -MAGN200T8 PO; +MAGN250T11 PO; +MIRA25TA PO; -MIRA50TA PO; -NOVLG SQ; +PANT-47 PO; -PANT40TA54 PO; +SENN-263 PO; -SENN8.6T19 PO; +ZINC50TA60 PO; -ZINC50TA67 PO; +[UNRECOGNIZED DRUG - OTHER]
[2024-01-16 16:21] LABS: BASOPHILS % (AUTO) 0.6 % (0-1); EOSINOPHILS # (AUTO) 0.2 X10'3 (0-0.9); EOSINOPHILS % (AUTO) 1.8 % (0-6); HEMOGLOBIN 13.4 g/dl (12.0-16.0); LYMPHOCYTES # (AUTO) 1.7 X10'3 (1.1-4.8); LYMPHOCYTES % (AUTO) 20.6 % (21-51); MEAN CORPUSCULAR HEMOGLOBIN 27.1 PG (27.0-31.0); MEAN CORPUSCULAR HGB CONC 32.7 g/dL (33.0-36.5); MEAN CORPUSCULAR VOLUME 82.9 FL (78-98); MEAN PLATELET VOLUME 6.9 FL (7.4-10.4); MONOCYTES # (AUTO) 0.7 X10'3 (0-0.9); NEUTROPHILS # (AUTO) 5.8 X10'3 (1.8-7.7); PLATELET COUNT 345 X10'3 (140-440); RED BLOOD COUNT 4.95 X10'6 (4.20-5.60); RED CELL DISTRIBUTION WIDTH 17.9 % (11.5-14.5); WHITE BLOOD COUNT 8.4 X10'3 (4.5-11.0)
[2024-01-16 16:38] LABS: ALANINE AMINOTRANSFERASE 14 U/L (12-78); ALBUMIN 2.4 G/DL (3.4-5.0); ALBUMIN/GLOBULIN RATIO 0.7 (1.1-1.5); ALKALINE PHOSPHATASE 135 IU/L (46-116); ANION GAP 5 (8-16); ASPARTATE AMINO TRANSFERASE 12 U/L (10-37); BILIRUBIN,TOTAL 0.3 MG/DL (0.1-1.0); BLOOD UREA NITROGEN 11 MG/DL (7-18); BUN/CREATININE RATIO 26.8 (10.0-20.0); CALCIUM 9.5 MG/DL (8.5-10.1); CHLORIDE 99 MMOL/L (99-107); CREATININE 0.41 MG/DL (0.40-0.90); GLUCOSE 180 MG/DL (70-104); POTASSIUM 3.7 MMOL/L (3.5-5.1); SODIUM 136 MMOL/L (135-145); eCRCL 102 ML/MIN; eGFR > 90 ML/MIN
[2024-01-16 16:39] LABS: APTT 30 SECONDS (22-32); PROTHROMBIN TIME 10.6 SECONDS (9.0-12.0)
[2024-01-16 17:51] LABS: UA COLLECTION TYPE CLN CATCH MIDSTREAM
[2024-01-16 18:02] LABS: CLARITY,URINE CLOUDY (Clear); COLOR,URINE YELLOW (Yellow); PH,URINE 7.5 (4.8-8.0)
[2024-01-16 18:03] LABS: BILIRUBIN,URINE NEGATIVE (Neg); GLUCOSE, URINE NEGATIVE (Neg); KETONES,URINE NEGATIVE (Neg); LEUKOCYTE ESTERASE ,URINE LARGE (Neg); NITRITES, URINE POSITIVE (Neg); OCCULT BLOOD,URINE MODERATE (Neg); PROTEIN,URINE TRACE mg/dl (Neg); SQUAMOUS EPITHELIAL CELL,UR NONE SEEN /LPF (FEW); UROBILINOGEN,URINE 0.2 E.U/dL (0.2-1.0); WBC,URINE TNTC /HPF (0-4)
[2024-01-16 18:04] LABS: BACTERIA,URINE 3+ /HPF (Neg); RBC,URINE 0-2 /HPF (0-2)
[2024-01-16] MEDS ORDERED: CEPH-585 PO (19:05)
[2024-01-16] MEDS: insulin regular, human 10 units/0.1 ml syringe IV ONE (19:10)
[2024-01-16] MEDS: CefTRIAXone 2gm/D5W 50ml BAG 50 ML IV ONE (19:15)
[2024-01-16 20:12] VITALS: BP 138/92; PULSE 87; RESP 17; O2SAT 97
== END 2024-01-16 20:13 | disposition home or self-care (01) ==
LOC: ER 15:45
DX: R53.1 Weakness (principal); N39.0 Urinary tract infection, site not specified; E11.9 Type 2 diabetes mellitus without complications; R79.1 Abnormal coagulation profile; R51.9 Headache, unspecified; Z88.5 Allergy status to narcotic agent; Z79.1 Long term (current) use of non-steroidal anti-inflammatories (NSAID); Z79.899 Other long term (current) drug therapy; Z79.4 Long term (current) use of insulin; Z98.890 Other specified postprocedural states; Z87.440 Personal history of urinary (tract) infections; Z86.73 Personal history of transient ischemic attack (TIA), and cerebral infarction without residual deficits
CPT/HCPCS: 36415; 70450; 71045; 80053; 81001; 82948; 84484; 85025; 85610; 85730; 87077; 87088; 87186; 93005; 96365; 96375; 99285; C1758; J0696; J1815